=== PATIENT | female | born 1940 | race Caucasian/White ===

== ENCOUNTER 2018-09-09 11:01 | Day surgery (SDC) | payer MEDICARE, SELFPAY ==
--- NOTE | 2018-09-09 | EGD_PTH ---
PATIENT: JANAY BAHENA LOC: EN U#:[id number] AGE/SX: 77/F ROOM: RE09/09/[address]: Dr. Janay Sharma MD : 1940 BED: DIS: 09/09/2018 SPEC #: [id number] RECD: 09/09/18 14:20 STATUS: DANNY AMEE #: [id number] FREDERICK: 09/09/18 00:[address]: Janay Sharma DEPT: SURGICAL PATHOLOGY RECD BY: Betito Diana ENTERED: 09/09/18 14:21 SP TYPE: EGD BIOPSY TAYLOR DR: Dr. Eugenia Chaves MD Tissues: A - Duodenum, NOS B - Gastric mucous membrane C - Gastric mucous membrane Procedures: Surgery Specimen Level IV HEADER OPERATION: EGD ([facility]) PRE-OP DIAGNOSIS: Familial adenomatous polyposis TISSUE SUBMITTED: A - Duodenal bulb, B - Gastric polyps biopsy, C - Antral biopsy for histo and H. pylori MICROSCOPIC DIAGNOSIS A. Duodenal bulb, biopsy: Tubular adenoma with cautery artifacts. B. Gastric polyps, biopsy: Fragments of gastric mucosa with focal adenomatous changes. C. Antral biopsy: Mild gastritis. See microscopic description and comment. SJ:kirstie 09/10/18 COMMENT C. The results of immunohistochemistry for Helicobacter pylori will be reported separately ([id number]). Please make reference to previous specimen ([id number]) duodenal polyp, biopsy with diagnosis of tubular adenoma, polyp antrum, biopsy with diagnosis of mild gastritis and antrum, biopsy with diagnosis of mild gastritis and ([id number]) ampulla, biopsy with diagnosis of fragments of tubular adenoma and gastric body polyps, biopsy with diagnosis of fundic gland polyps and ([id number]) gastric polyp, biopsy with diagnosis of fragments of tubular adenoma with focal intestinal metaplasia and fragments of fundic gland polyp. MICROSCOPIC DESCRIPTION Slides are reviewed. C. The specimen shows fragments of gastric mucosa with chronic inflammatory cell infiltrates in the lamina propria consisting of lymphocytes and plasma cells, consistent with mild chronic gastritis. GROSS DESCRIPTION A - Received in fixative is one container labeled with the patient's name and designated duodenal bulb. The specimen consists of multiple irregular fragments of light brand soft tissue that in aggregate measure 0.3 x 0.2 x 0.1 cm. The specimen is totally submitted in one cassette. B - Received in fixative is one container labeled with the patient's name and designated gastric polyps biopsy. The specimen consists of multiple irregular fragments of light brand soft tissue that in aggregate measure 1.5 x 0.3 x 0.1 cm. The specimen is totally submitted in one cassette. C - Received in fixative is one container labeled with the patient's name and designated antral biopsy. The specimen consists of one irregular fragment of light brand soft tissue that measures 0.3 x 0.2 x 0.1 cm. The specimen is totally submitted in one cassette. / SJ:rg 09/09/18 TC:1 CPT: 92411 x3
--- NOTE | 2018-09-09 11:10 | PCM.HP.BLA ---
History and Physical Date of Admission: 09/09/18 Jaimee Herr 1940 ? REFERRING PHYSICIAN: Eugenia Chaves MD ? CHIEF COMPLAINT: Consult (yearly EGD) ? HPI: The patient is a 77 year old female referred for surveillance upper endoscopy. Patient has familial adenomatous polyposis syndrome and has had total colectomy. Multiple family members have had total colectomies and one with gastrectomy. Patient has had past gastric and duodenal polyps on EGD and is recommended to have annual surveillance upper endoscopy. ? The patient notes no new concerns currently. She denies blood in stools or dark stools, or abdominal pain. Other significant medical issues include asthma. Takes protonix for GERD. ? Last EGD 04/16/17 - findings of tubular adenoma with focal intestinal metaplasia - patient was counseled to return for EGD, but was lost to follow up Her present major complaint is nausea. ? Has occasional dysphagia. Has been trying to lose weight. Denies abdominal pain at present. Denies hematemesis. Had previous EGD with duodenal tubular adenoma removed in the past. Has chronic left knee and back pain. Cannot ambulate long distances. ? ? PAST?MEDICAL?HISTORY ? Asthma since age 20 ? Familial polyposis of colon 02/23/2012 ? Familial polyposis of colon ?? adenomtous ? Ganglion cyst of wrist ?? right wrist ? Ileostomy present ([facility]) 02/21/2012 ? Morbid obesity ([facility]) 02/21/2012 ? Personal history of colonic polyps ? ? Phlebitis approx 1979? right leg, no DVT ? Uterus cancer (HCC) ? ? ? PAST?SURGICAL?HISTORY ? APPENDECTOMY HX ? ? ? CHOLECYSTECTOMY HX ? ? ? EGD W/O OR W/BRUSH/WASH ?? EGD [facility] [place] several EGDs done ? EGD W/O OR W/BRUSH/WASH ? 10/15/12 ? EGD W/O OR W/BRUSH/WASH ? 12/16/2012 ? EGD W/O OR W/BRUSH/WASH ? 02/21/2013 ? EGD W/O OR W/BRUSH/WASH ? 02/25/15 ? EGD W/O OR W/BRUSH/WASH ? 03/08/16 ? LAPAROSCOPY DIAGNOSTIC ? 1991? mass removed from bowel and adrenals ? PAST SURGICAL HISTORY OF ? 1989 approx? ileostomy for hereditary polyps, at [facility] [place] ? PAST SURGICAL HISTORY OF ? 1992 appox ? gangrene small intestine and stomach, partial gastrectomy and colectomy ? PAST SURGICAL HISTORY OF ? x 1 ? TOTAL ABDOM HYSTERECTOMY ? 11/2014? Hysterectomy, MAGGI ? ? CURRENT?MEDICATIONS budesonide-formoterol (SYMBICORT) 160-4.5 mcg/actuation inhaler Inhale 2 Puffs as instructed twice daily. Ostomy Supplies (SOBIA-FIT NATURA DRAINABLE POUCH) 1 3/ misc 1 bag as needed. Use as needed prn at least every 3 - 4 days Ostomy Adhesive (STOMAHESIVE PASTE) pste 1 application as needed. Apply each time change ostomy Ostomy Supplies (SOBIA-FIT NATURA STOMAHESIVE) 10/30 misc 1 Device as needed. Use as needed at least every 3 - 4 days montelukast (SINGULAIR) 10 mg tablet take 1 tablet by mouth at bedtime albuterol HFA (PROAIR HFA) 90 mcg/actuation inhaler Inhale 2 Puffs as instructed every 6 hours as needed. albuterol (PROVENTIL) 2.5 mg /3 mL (0.083 %) nebulizer solution Use 3 mL via nebulizer every 4 hours as needed for Wheezing/Shortness of Breath. Nebulizer NEBULIZER and SUPPLIES FOR HOME USE. DX: (R05) Cough, (R06.09) MEANS (dyspnea on exertion),(Z87.09) Hx of restrictive lung disease, (J45.30) Mild persistent asthma without complication COMPOUNDED PRESCRIPTION Custom fit KNEE HIGH COMPRESSION STOCKINGS 30-40 MM. DX: (I89.0) Lymphedema, (R60.0) Edema of both legs . Give 2 pairs if covered with insurance gabapentin (NEURONTIN) 100 mg capsule take 1 to 3 capsules by mouth at bedtime pantoprazole DR (PROTONIX) 20 mg tablet take 1 tablet by mouth 1/2 HOUR BEFORE BREAKFAST ondansetron (ZOFRAN, HYDROCHLORIDE,) 8 mg tablet Take 1/2 to 1 tablet every 8 hours as needed for nausea. furosemide (LASIX) 20 mg tablet take 1 tablet by mouth once daily ibuprofen (MOTRIN) 200 mg tablet Take 1-3 tablets by mouth every 8 hours as needed for Pain (Take with food.). Using at bedtime 600 mg ? ? ALLERGIES: Benadryl [Diphenhydramine]; Gabapentin ? ? PERSONAL HISTORY: Marital status: Spouse name: Years of education: Number of children: 5 ?Social History Main Topics Smoking status: Never Smoker ? Smokeless status: Never Used Alcohol use: Yes Comment: social Drug use: No ? FAMILY HISTORY: ? Heart Mother ? ? Heart Father ? ? Colon Cancer Brother ? ? Heart Brother ? ? colon polyps [OTHER] Daughter? ? colon surgery done ? colon polyps [OTHER] Daughter? ? colon surgery done ? colon polyps [OTHER] Son ? ? colon polyps [OTHER] Daughter ? ? colectomy ? ? REVIEW OF SYSTEMS GENERAL: No weight loss, malaise or fevers HEENT: Negative for frequent or significant headaches, No changes in hearing or vision, no nose bleeds or other nasal problems NECK: Negative for lumps, goiter, pain and significant neck swelling RESPIRATORY: has shortness of breath with exertion CARDIOVASCULAR: Negative for chest pain, leg swelling, hypertension, CHF or palpitations GI: No nausea, vomiting, or diarrhea and See HPI Musculoskeletal: cannot ambulate long distances without use of wheelchair/assistance ? PHYSICAL EXAMINATION: General: The patient is 76 year old female, well nourished, well hydrated in no acute distress. The patient is oriented to time, place, and person. VITALS: Blood pressure 162/84, pulse 60, height 5' 5, weight 310 lb. Body mass index is 52 Head: normocephalic, atraumatic Eyes: Sclera clear, wearing glasses NECK: Neck supple, trachea is midline Mouth: mucus membranes moist, poor dentition Respiratory: Clear to auscultation and percussion. Normal respiratory excursion and pattern. Cardiac: Examination is regular rate and rhythm. Abdominal exam: Soft, nontender, and obese, difficult to determine if any masses or organomegaly due to body habitus. Ileostomy in place and functioning, mucosa pink and healthy appearing. Extremities: no clubbing, cyanosis or edema. ? I have confirmed and edited as necessary, the PFSH and ROS obtained by others. IMPRESSION: familial adenomatous polyposis, need for surveillance EGD ? PLAN: I have discussed above with patient and her who is present with her. We will arrange for upper endoscopy, to be performed at [facility] due to patient BMI. We discussed the risks and benefits of the planned endoscopy. I have informed the patient that complications can occur including failure to complete the endoscopy and perforation. Other risks - infection, bleeding, complications of anesthesia, etc. - she understands. The patient had the opportunity to ask questions concerning the planned endoscopy. My staff has also explained the procedure to the patient in understandable terms and has given the patient printed material concerning the procedure. The patient freely consents to surgery. Greater than 50% of this patient encounter was spent in face to face discussion with the patient - total time spent with patient 20 minutes. ? ?
[2018-09-09 11:38] VITALS: BP 168/89; PULSE 88; RESP 18; TEMP 36.9; O2SAT 96; BMI 50.3
--- NOTE | 2018-09-09 12:30 | IMM_PTH ---
PATIENT: JANAY BAHENA LOC: EN U#:[id number] AGE/SX: 77/F ROOM: RE09/09/[address]: Dr. Janay Sharma MD : 1940 BED: DIS: 09/09/2018 SPEC #: [id number] RECD: 09/09/18 15:07 STATUS: DANNY REQ #: [id number] FREDERICK: 09/09/18 12:[address]: Janay Sharma DEPT: IMMUNOHISTOCHEMISTRY RECD BY: Crystal Hutchins ENTERED: 09/09/18 15:08 SP TYPE: IMMUNO OTHR DR: Dr. Eugenia Chaves MD Tissues: C - Stomach, NOS Procedures: H Pylori (initial) PHYSICIAN & INSTITUTION [place] [address] SPECIMEN INFORMATION: Tissue Source: C - Antral biopsy Clinical Info: Familial adenomatous polyposis Specimen Number: [id number] CPT code: 19014 METHODOLOGY: Deparaffinized sections of prefer/formalin-fixed tissue or PAP/DQ stained slides are incubated with monoclonal/polyclonal antibodies/oligonucleotide probes. Localization is made via biotin free immunoperoxidase method. Appropriate controls are performed and reacted as expected. Results on target cell population are indicated in the following table: RESULTS: ANTIBODY / CLONE RESULT Block C H Pylori (polyclonal) negative These tests were developed and their performance characteristics determined by [facility]. They may not have been cleared or approved by the U.S. Food and Drug Administration. The FDA has determined that such clearance or approval is not necessary. INTERPRETATION: C. Antral biopsy: Negative for Helicobacter pylori organisms. SJ:kirstie 09/10/18
[2018-09-09 13:05] VITALS: BP 129/70; BP 168/89; PULSE 71; RESP 16; TEMP 36.3; O2SAT 97
[2018-09-09 13:10] VITALS: BP 132/73; BP 168/89; PULSE 63; RESP 16; O2SAT 99
[2018-09-09 13:16] VITALS: BP 150/70; BP 168/89; PULSE 53; RESP 16; O2SAT 100
[2018-09-09 13:21] VITALS: BP 140/82; BP 168/89; PULSE 58; RESP 16; TEMP 36.1; O2SAT 98
--- NOTE | 2018-09-09 13:21 | OP.ENDO_ITS ---
Patient Name: Jaimee Herr Procedure Date: 09/09/2018 12:34 PM Date of : 1940 Age: 77 Procedure: Upper GI endoscopy Indications: Familial Adenomatous Polyposis Providers: Jaimee Sharma MD Medicines: See the Anesthesia note for documentation of the administered medications Patient Profile: Refer to note in patient chart for documentation of history and physical. Complications: No immediate complications. Procedure: Pre-Anesthesia Assessment: - Prior to the procedure, a History and Physical was performed, and patient medications and allergies were reviewed. The patient's tolerance of previous anesthesia was also reviewed. The risks and benefits of the procedure and the sedation options and risks were discussed with the patient. All questions were answered, and informed consent was obtained. Prior Anticoagulants: The patient has taken no previous anticoagulant or antiplatelet agents. ASA Grade Assessment: III - A patient with severe systemic disease. After reviewing the risks and benefits, the patient was deemed in satisfactory condition to undergo the procedure. After obtaining informed consent, the endoscope was passed under direct vision. Throughout the procedure, the patient's blood pressure, pulse, and oxygen saturations were monitored continuously. The gastroscope was introduced through the mouth, and advanced to the fourth part of duodenum. The upper GI endoscopy was accomplished without difficulty. The patient tolerated the procedure well. Scope In: 12:46:31 PM Scope Out: 12:59:17 PM Total Procedure Duration Time 0 hours 12 minutes 46 seconds Findings: A small hiatal hernia was present. One 5 to 9 mm sessile polyp with no bleeding was found in the second portion of the duodenum. The polyp was removed with a hot snare. Resection and retrieval were complete. Verification of patient identification for the specimen was done by the nurse. Estimated blood loss was minimal. Multiple 5 to 10 mm pedunculated polyps with no bleeding and no stigmata of recent bleeding were found in the gastric body. The polyp was removed with a cold biopsy forceps. Multiple gastric fundic type polyps were noted, the largest ones were sampled. Estimated blood loss was minimal. Impression: - Small hiatal hernia. - One duodenal polyp. Resected and retrieved. - Multiple gastric polyps - benign gastric fundic appearing. Larger ones were removed. Recommendation: - Discharge patient to home (ambulatory). - Resume previous diet. - Continue present medications. - Await pathology results. - My office will telephone with pathology results in 1-2 weeks Procedure Code(s): --- Professional --- 75683, 59, Esophagogastroduodenoscopy, flexible, transoral; with biopsy, single or multiple Diagnosis Code(s): --- Professional --- K44.9, Diaphragmatic hernia without obstruction or gangrene K31.7, Polyp of stomach and duodenum D12.6, Benign neoplasm of colon, unspecified CPT copyright 2017 [employer]. All rights reserved. The codes documented in this report are preliminary and upon radio engineer review may be revised to meet current compliance requirements. MD Jaimee Ndiaye MD 09/09/2018 1:20:40 PM This report has been signed electronically. Number of Addenda: 0 Note Initiated On: 09/09/2018 12:34 PM
[2018-09-09 13:33] VITALS: BP 168/89
== END 2018-09-09 13:34 | disposition home or self-care (01) ==
LOC: EN 11:01 → AC 11:04
PROVIDERS: Family Provider Internal Medicine; PCP Internal Medicine; Referring Provider Surgery; Visit Provider Surgery
PROC: 0DJ08ZZ Inspection of Upper Intestinal Tract, Via Natural or Artificial Opening Endoscopic (ICD-10-PCS; CPT 43235; principal; 2018-09-09 12:25)
DX: K29.70 Gastritis, unspecified, without bleeding (principal); K31.7 Polyp of stomach and duodenum; D12.6 Benign neoplasm of colon, unspecified; D13.2 Benign neoplasm of duodenum; K44.9 Diaphragmatic hernia without obstruction or gangrene; K21.9 Gastro-esophageal reflux disease without esophagitis; R13.10 Dysphagia, unspecified; J44.9 Chronic obstructive pulmonary disease, unspecified; J45.30 Mild persistent asthma, uncomplicated; G89.29 Other chronic pain; M25.562 Pain in left knee; M54.9 Dorsalgia, unspecified; Z86.010 Personal history of colon polyps; Z85.42 Personal history of malignant neoplasm of other parts of uterus; Z86.718 Personal history of other venous thrombosis and embolism; Z90.49 Acquired absence of other specified parts of digestive tract; Z78.0 Asymptomatic menopausal state
CPT/HCPCS: 43239; 88305; 88342; J7120; J2405

== ENCOUNTER 2018-10-22 13:11 | Emergency (ER) | payer MEDICARE, SELFPAY ==
[2018-10-22 13:11] VITALS: BP 161/68; PULSE 74; RESP 22; TEMP 36.5; O2SAT 95; BMI 50.0
--- NOTE | 2018-10-22 13:23 | EKG12_ITS ---
Test Reason : Blood Pressure : / mmHG Vent. Rate : 091 BPM Atrial Rate : 102 BPM P-R Int : 000 ms QRS Dur : 074 ms QT Int : 240 ms P-R-T Axes : 000 021 233 degrees QTc Int : 295 ms Atrial fibrillation Low voltage QRS Nonspecific ST and T wave abnormality Abnormal ECG Confirmed by JAMES TAPIA, AYAH ([id number]), editor magazine TOMI HICKMAN ([id number]) on 10/24/2018 9:30:57 AM Referred By: RANDEE Confirmed By:AYAH RAMIREZ MD
--- NOTE | 2018-10-22 13:23 | RAD_ITS ---
STUDY: X-RAY CHEST REASON FOR EXAM: Female, 78 years old. Chest pain. Shortness of breath. TECHNIQUE: AP and lateral views of the chest. COMPARISON: None. FINDINGS: EKG electrodes are seen. Vascular congestion and mild CHF. There is no demonstrated pleural abnormality. There is moderate cardiac enlargement. Normal mediastinum and park. Normal visualized pulmonary arteries. There is atherosclerotic tortuosity of the aortic arch and descending thoracic aorta. There are diffuse degenerative changes of the visualized thoracic spine. Normal visualized ribs, clavicles, and shoulders. There is no demonstrated abnormality of the visualized soft tissue structures of the upper abdomen. RAD/Chest PA and Lateral IMPRESSION: Cardiomegaly and CHF. Electronically Signed: Justin Isaac, at 14:45 EDT , Service support ,
--- NOTE | 2018-10-22 13:27 | NURSING ---
NO OLD EKGS
--- NOTE | 2018-10-22 13:28 | ED.DCSUM_ITS ---
History of Present Illness Chief Complaint: Asthma Informant: Patient Onset: Days Context: Sudden Onset Timing: Continuous Quality: Shortness of breath, cough and wheezing Location: Chest Current Severity: Mild Maximum Severity: Moderate Worsened by: Activity Relieved by: nothing Associated Symptoms: Chest tightness, shortness of breath, wheezing, productive cough Narrative: Patient is an elderly woman with history of asthma and COPD who presents with cough that is productive of white-colored sputum, shortness of breath, wheezing, dyspnea on exertion and tightness in her chest when she breathes. She has been using her inhaler with no effect. She has not been on prednisone in the last 90 days. She denies rhinorrhea, congestion or postnasal drainage. Denies sore throat. Denies ear pain, tinnitus or decreased hearing. She denies history of hypertension, diabetes or coronary disease. She denies history of congestive heart failure. She does have history of lymphedema. She has not had recent surgery. She denies history of PE or DVT. She denies leg pain or discoloration. Prior similar symptoms: Yes Recent Illness/Hospitalization: No - Past Medical History (1) History of asthma and COPD Status: Acute Past Medical History - Allergies and Home Meds Allergies/Adverse Reactions: Allergies diphenhydramine HCl [From Benadryl] Adverse Reaction (Verified 10/22/18 13:13) Shortness of breath Primary Care Physician: Eugenia Chaves MD [Primary Care Provider] - Prior records reviewed: Yes Surgical History: colectomy - Polyp of stomach removed in 1995, colectomy with colostomy, hysterectomy, - Lives: Spouse/ Significant Other Smoking Status: Never smoker Alcohol: None Drugs: None - Family History Maternal Family History: Reports: Heart Disease, Pulmonary Disease, Stroke Paternal Family History: Reports: Heart Disease Sibling Family History: Reports: Heart Disease, Pulmonary Disease Review of Systems General: Denies: Chills, Fever, Malaise, Sweats Eyes: Denies: Visual changes - bilaterally, Diplopia ENT: Denies: Rhinorrhea, Sore throat Cardiovascular: Reports: Chest pain, Palpitations, Heart racing Respiratory: Reports: Dyspnea, Cough, Sputum, Dyspnea on exertion. Denies: Orthopnea, Paroxysmal nocturnal dyspnea Gastrointestinal: Denies: Abdominal pain, Nausea, Vomiting, Diarrhea, Melena, Hematochezia Genitourinary: Denies: Dysuria, Hematuria, Frequency Musculoskeletal: Denies: Back pain, Extremity Pain Skin: Denies: Rash, Wounds Neurological: Denies: Headache, Weakness, Parasthesia, Numbness Hematologic: Denies: Easy bruising, Easy bleeding Allergy: Denies: Uticaria, Swelling of the mouth Physical Exam Vital Signs/Narrative: Vital Signs Temp Pulse Resp BP Pulse Ox 10/22/18 13:11 97.7 F L 74 22 H 161/68 H 95 General: Well nourished, Well developed, No Acute Distress Head: Normocephalic, Atraumatic Eyes: Perrl, EOMI ENT: Moist mucous membranes, No rhinorrhea Neck: Supple, Nontender Cardiovascular: Regular rate, Regular rhythm, No murmurs Respiratory: Chest nontender, Decreased Air Movement, - - Minimal use of accessory muscles Abdomen: Soft, Nontender, Nondistended, Normal bowel sounds, No masses Back: Nontender, Normal Inspection Extremities: Nontender, Edema, - - There is no asymmetry, swelling, discoloration, leg vein distention, palpable cords or tenderness along the distribution of the deep venous system. Skin: Normal color, No rash Neurological: Alert, Oriented x3, Cranial nerves II-XII grossly intact, Normal Strength, Normal Sensation Psychological: Normal affect, Normal Mood Diagnostic/Tx/Re-eval Chest X-Ray - ED: 2 View, Read by ED Physician, Normal, Heart, Bony Structures, - - There appears to be an air bronchogram on the right. Suboptimal quality with regards to technique. Slight rotation. Inspiration is limited. There is hilar lymphadenopathy. There are no old films for comparison. 10/22/18 13:23 Chest PA and Lateral [RAD] Stat Laboratory Results 10/22/18 10/22/18 13:30 13:30 WBC 10.0 RBC 4.04 L Hgb 12.5 Hct 41.4 MCV 102.5 H MCH 30.9 MCHC 30.2 L RDW 12.9 RDW Differential 47.8 H Plt Count 99 L MPV 12.5 H Immature Gran % (Auto) 0.400 Neut % (Auto) 67.5 Lymph % (Auto) 18.3 L [place] % (Auto) 12.1 H Eos % (Auto) 1.3 Baso % (Auto) 0.4 Absolute Neuts (auto) 6.8 Absolute Lymphs (auto) 1.83 Total Counted Not Reportable Sodium 141 Potassium 3.6 Chloride 106 Carbon Dioxide 26.0 Anion Gap 9 BUN 7 Creatinine 1.10 H Estim Creat Clear Calc 40.73 Est GFR (MDRD) Af Amer 62 Est GFR (MDRD) Non-Af 51 L BUN/Creatinine Ratio 6.4 L Glucose 92 Calcium 8.3 L Troponin I < 0.015 - Rhythm Strip Rhythm Strip: Sinus Rhythm Rate: 76 Ectopy: None - EKG Initial EKG Interpretation: Atrial Fibrillation - Ventricular rate is 91. The rhythm is irregularly irregular with no obvious P waves noted suspect atrial fibrillation. Doubt MAT. Low voltage is noted. QRS duration is normal. QT normal. Computer is reading no ossific ST-T wave abnormality. There is artifact in most likely cause of ST and T wave abnormality. - Medical Decision Making With respiratory symptoms, wheezing, tachypnea suspect exacerbation COPD. Will obtain chest x-ray to assess for bronchitis versus pneumonia. Since patient complains of chest tightness will obtain EKG and troponin to assess for atypical cardiac presentation. Suspect this is related to her wheezing/asthma and COPD exacerbation. Patient was reexamined at 1445. She is wheeze free. Plan is prescription for antibiotic, prednisone and follow-up with primary care physician ED Disposition - Plan for ED Patient: Disposition: Home or Assisted Living Diagnosis: Chronic obstructive pulmonary disease with bronchospasm, Purulent chronic bronchitis Instructions: ED COPD Flare Prescriptions: levoFLOXacin tablet [Levaquin] 500 mg PO DAILY #7 tablet Prednisone [Deltasone] 40 mg PO DAILY #10 tablet Referrals: Eugenia Chaves MD [Primary Care Provider] - Additional Instructions: Your prescriptions were electronically transmitted to [facility] located in [place] your designated pharmacy of choice
[2018-10-22 13:43] LABS: Absolute Lymphocyte Count 1.83 X10^3/ul (0.83-4.51); Absolute Neutrophil Count 6.8 X10^3/uL (2.0-7.7); Basophil# 0.04 X10^3/uL; Basophil% 0.4 % (0-1); Eosinophil# 0.13 X10^3/uL; Eosinophils% 1.3 % (0-5); Hematocrit 41.4 % (37-47); Hemoglobin 12.5 g/dl (12.0-15.0); Lymphocyte # 1.83 X10^3/ul (4.0); Lymphocyte % 18.3 % (19-41); Mean Corp Hgb Conc 30.2 g/gl (32-36); Mean Corpuscular Hgb 30.9 pg (27.0-32.0); Mean Corpuscular Volume 102.5 fL (81-99); Mean Platelet Vol. 12.5 fl (6.2-12.0); Monocyte# 1.21 X10^3/uL; Monocyte% 12.1 % (0-10); Neutrophil # 6.77 X10^3/uL (2.7-7.7); Neutrophil % 67.5 % (47-70); Platelet Count 99 K/mm3 (150-450); RBC Distribution Width CV 12.9 % (11.6-14.6); RBC Distribution Width SD 47.8 fl (35.1-43.9); Red Blood Count 4.04 M/mm3 (4.2-5.4)
[2018-10-22 13:45] VITALS: PULSE 96; RESP 20
[2018-10-22] MEDS: Albuterol 2.5 MG/3 ML VIAL.NEB. INHALATION ×3 (13:45)
[2018-10-22] MEDS: Ipratropium/Albuterol Sulfate 3 ML AMPUL.NEB INHALATION (13:45)
[2018-10-22 13:46] LABS: POSITIVE COUNT NO; POSITIVE DIFFERENTIAL NO; POSITIVE MORPHOLOGY NO
[2018-10-22] MEDS: MethylPREDNISolone 125 MG/2 ML Vial 60 MG IV (13:48)
[2018-10-22 13:54] VITALS: O2SAT 95
[2018-10-22 14:04] LABS: Anion Gap 9 (5-15); BUN 7 mg/dL (7-18); BUN/Creat Ratio 6.4 RATIO (10-20); Calcium,Total 8.3 mg/dL (8.5-10.1); Chloride 106 mmol/L (98-107); EST Glomerular Filtration Rate 51 mL/min (>60); Est Glom Filt Rate - Afr Amer 62 mL/min (>60); Estimated Creatinine Clearance 40.73 ml/min; Glucose 92 mg/dL (74-106); Potassium 3.6 mmol/L (3.5-5.1); Sodium Level 141 mmol/L (136-145)
[2018-10-22 15:07] VITALS: BP 157/91; PULSE 76; RESP 18; O2SAT 97
== END 2018-10-22 15:24 | disposition home or self-care (01) ==
PROVIDERS: Emergency Provider Emergency Medicine; Family Provider Internal Medicine; PCP Internal Medicine
DX: J44.9 Chronic obstructive pulmonary disease, unspecified (principal); J98.01 Acute bronchospasm; I89.0 Lymphedema, not elsewhere classified; Z79.899 Other long term (current) drug therapy
CPT/HCPCS: 71046; 80048; 84484; 85025; 93005; 94640; 96374; 99284; A4216